=== PATIENT | male | born 1945 | race African-American/Black ===

== ENCOUNTER → 2016-09-04 | Outpatient (CLI) | payer MEDICARE ==
--- NOTE | 2016-09-04 15:27 | CARD ---
APPROVED REPORT EXAM: Two-dimensional and M-mode echocardiogram with Doppler and color Doppler. Other Information Quality : Good INDICATION Peripheral Edema 2D DIMENSIONS RVDd3.3 (2.9-3.5cm)Left Atrium(2D)3.3 (1.6-4.0cm) IVSd1.4 (0.7-1.1cm)Aortic Root(2D)3.5 (2.0-3.7cm) LVDd4.0 (3.9-5.9cm)LVOT Diameter2.5 (1.8-2.4cm) PWd1.4 (0.7-1.1cm)LVDs2.6 (2.5-4.0cm) FS (%) 33.6 %SV43.7 ml LVEF(%)60.0 (>50%) Aortic Valve AoV Peak Mg.147.5cm/sAoV VTI31.9cm AO Peak GR.8.7mmHgLVOT Peak Mg.99.7cm/s AO Mean GR.5mmHgAVA (VMAX)3.25cm2 VAMSI (VTI)3.00cm2 Mitral Valve MV E Ibgljnsq91.7cm/sMV DECEL BYGA889eo MV A Klbsenyw89.0cm/sE/A Ratio1.0 Tricuspid Valve TR P. Rsdfncvk063ot/sRAP HVEDLCNA0xiZp TR Peak Gr.99xiVcKUBU94mmJy Pulmonary Vein S1 Kcgopqkt34.5cm/sD2 Nnvhuebz81.7cm/s PVa lisbxqsn627ezsp LEFT VENTRICLE The left ventricle is normal size. There is mild concentric left ventricular hypertrophy. The left ve ntricular systolic function is normal. The Ejection Fraction is 55-60%. There is normal LV segmental wall motion. RIGHT VENTRICLE The right ventricle is normal size. The right ventricular systolic function is normal. ATRIA The left atrium size is normal. The right atrium size is normal. The interatrial septum is intact wit h no evidence for an atrial septal defect or patent foramen ovale as noted on 2-D or Doppler imaging. AORTIC VALVE The aortic valve is calcified but opens well. Doppler and Color Flow revealed no significant aortic r egurgitation. There is no significant aortic valvular stenosis. MITRAL VALVE The mitral valve is normal in structure and function. There is no evidence of mitral valve prolapse. There is no mitral valve stenosis. Doppler and Color-flow revealed trace mitral regurgitation. TRICUSPID VALVE The tricuspid valve is normal in structure and function. Doppler and Color Flow revealed trace tricus pid regurgitation. There is mild pulmonary hypertension. The PA pressure was estimated at 31 mmHg. Th ere is no tricuspid valve stenosis. PULMONIC VALVE The pulmonary valve is normal in structure and function. Doppler and Color Flow revealed mild pulmoni c valvular regurgitation. There is no pulmonic valvular stenosis. GREAT VESSELS The aortic root is normal in size. The ascending aorta is normal in size. The IVC is normal in size a nd collapses >50% with inspiration. PERICARDIAL EFFUSION There is no evidence of significant pericardial effusion. Critical Notification Critical Value: No <Conclusion> The left ventricular systolic function is normal. The Ejection Fraction is 55-60%. There is normal LV segmental wall motion. Trace mitral regurgitation. Trace tricuspid regurgitation. There is no evidence of significant pericardial effusion.
== END | disposition home or self-care (01) ==
LOC: ECHO 10:14
PROVIDERS: ATTEND Internal Medicine
DX: M79.89 Other specified soft tissue disorders (principal); R60.9 Edema, unspecified; I07.1 Rheumatic tricuspid insufficiency; I27.2 Other secondary pulmonary hypertension; I34.0 Nonrheumatic mitral (valve) insufficiency
CPT/HCPCS: 93306

== ENCOUNTER → 2017-03-14 | Outpatient (CLI) | payer BC ==
[~2017-03-14] MED LIST: HEPARIN PF 500 UNIT/5 ML DISP.SYRIN. IV ONE; IOHEXOL 240 MG/ML 50ML VIAL. PO ONE; IOHEXOL 300 MG/ML 75 ML VIAL IV ONE
--- NOTE | 2017-03-14 13:03 | RAD ---
CT of the chest, abdomen and pelvis with contrast, 03/14/2017: History: Colon cancer follow-up, abnormal liver function tests Multidetector CT imaging was performed following oral and IV administration of contrast. Comparison is made to a study from 05/21/2016. Mildly enlarged mediastinal lymph nodes are unchanged. There are calcifications within these nodes. Moderate coronary artery calcifications are present. The thoracic aorta is of normal caliber. There are scattered linear opacities in the lungs, particularly in the apical regions which are unchanged and are compatible with scars. There are nodular, predominantly tree-in-bud type opacities in the upper lobes which are also unchanged and are likely postinflammatory. No new pulmonary infiltrate or mass is seen. There is no evidence of pleural fluid. Several scattered low density lesions are again noted in the liver. The largest of these demonstrates low internal CT numbers compatible with cysts. No new or enlarging liver lesion is seen. The gallbladder is collapsed. No pancreatic abnormality is detected. The spleen is of normal size. No renal or adrenal abnormality is detected. There is mild aortoiliac calcific plaquing. No abdominal or pelvic adenopathy is detected. The prostate gland is at the upper limits of normal in size. The bowel loops are not dilated. No free air or significant free fluid is identified in the abdomen or pelvis. IMPRESSION: 1. Stable bilateral linear and nodular pulmonary opacities, probably on a postinflammatory basis. 2. Mildly enlarged, partially calcified mediastinal lymph nodes are unchanged, also likely on a postinflammatory basis. 3. Stable hepatic cysts. 4. No specific evidence of metastatic disease in the chest, abdomen or pelvis. PQRS Compliance Statement: One or more of the following individualized dose reduction techniques were utilized for this examination: 1. Automated exposure control 2. Adjustment of the mA and/or kV according to patient size 3. Use of iterative reconstruction technique
== END | disposition home or self-care (01) ==
LOC: CT 08:59
PROVIDERS: ATTEND Internal Medicine Hematology & Oncology
DX: C18.2 Malignant neoplasm of ascending colon (principal); C34.11 Malignant neoplasm of upper lobe, right bronchus or lung; I25.10 Atherosclerotic heart disease of native coronary artery without angina pectoris; K76.89 Other specified diseases of liver; I10 Essential (primary) hypertension
CPT/HCPCS: 71260; 74177; Q9966; Q9967

== ENCOUNTER → 2017-09-30 | Outpatient (CLI) | payer BC ==
[~2017-09-30] MED LIST changes: +CONTRAST GIVEN MC; -HEPARIN PF 500 UNIT/5 ML DISP.SYRIN. IV ONE; -IOHEXOL 240 MG/ML 50ML VIAL. PO ONE; -IOHEXOL 300 MG/ML 75 ML VIAL IV ONE
[2017-09-30] MEDS: IOHEXOL 240 MG/ML 50ML VIAL. PO (08:45)
[2017-09-30] MEDS: IOHEXOL 300 MG/ML 100ML VIAL. IV (10:04)
== END | disposition home or self-care (01) ==
LOC: CT 07:52
DX: C18.2 Malignant neoplasm of ascending colon (principal); I25.10 Atherosclerotic heart disease of native coronary artery without angina pectoris; N40.0 Benign prostatic hyperplasia without lower urinary tract symptoms; K40.90 Unilateral inguinal hernia, without obstruction or gangrene, not specified as recurrent; R91.8 Other nonspecific abnormal finding of lung field
CPT/HCPCS: 71260; 74177; Q9966; Q9967

== ENCOUNTER → 2018-04-16 | Outpatient (CLI) | payer BC ==
[~2018-04-16] MED LIST changes: -CONTRAST GIVEN MC; +IOHEXOL 240 MG/ML 50ML VIAL. PO ONE; +IOHEXOL 300 MG/ML 100ML VIAL. IV ONE
--- NOTE | 2018-04-16 13:52 | RAD ---
Examination: CT of the abdomen pelvis with IV contrast HISTORY: History of follow-up colon cancer COMPARISON: 09/30/2017 TECHNIQUE: Axial CT images of the abdomen pelvis were performed with IV contrast. Coronal and sagittal reformats are performed. Oral contrast was used. Exposure: One or more of the following individualized dose reduction techniques were utilized for this examination: 1. Automated exposure control 2. Adjustment of the mA and/or kV according to patient size 3. Use of iterative reconstruction technique FINDINGS: The visualized thyroid gland grossly appears unremarkable. Central airways are patent. Few prominent calcified mediastinal lymph nodes are again identified similar to prior exam. The heart size grossly appears unremarkable. Coronary artery calcifications. Reticular nodular markings identified in the bilateral upper lobes with biapical scarring changes unchanged. 6 mm nodule identified in the right upper lobe of the lung is unchanged. Multiple cystic structures identified in the liver similar to prior exam likely cysts. The visualized spleen, adrenals grossly appears unremarkable. The gallbladder is mildly distended. The stomach is mildly distended. The visualized pancreas grossly appears unremarkable. The small bowel is nondilated. Bilateral kidneys enhance symmetrically. Feces and gas noted in the colon. Urinary bladder is mildly distended. Mildly enlarged prostate gland. Moderate degenerative changes thoracolumbar spine. IMPRESSION: 1. Reticulonodular interstitial markings identified in the bilateral upper lobes similar to prior exam. Unchanged 6 mm nodule identified in the right upper lobe of the lung. 2. Unchanged mediastinal lymphadenopathy. 3. Liver cysts. 4. No obvious evidence of new metastatic disease. Electronically signed by: Mikael Osborne MD (04/16/2018 1:49 PM) [facility]
== END | disposition home or self-care (01) ==
LOC: CT 13:49
PROVIDERS: ATTEND Internal Medicine Hematology & Oncology
DX: C18.2 Malignant neoplasm of ascending colon (principal); N40.0 Benign prostatic hyperplasia without lower urinary tract symptoms; I25.10 Atherosclerotic heart disease of native coronary artery without angina pectoris; I10 Essential (primary) hypertension; R59.1 Generalized enlarged lymph nodes
CPT/HCPCS: 71260; 74177; Q9966; Q9967

== ENCOUNTER → 2020-03-11 | Day surgery (SDC) | payer BC ==
[~2020-03-11] MED LIST changes: +AMLO5TAB10 PO; +CHLO25TA10 PO; -IOHEXOL 240 MG/ML 50ML VIAL. PO ONE; -IOHEXOL 300 MG/ML 100ML VIAL. IV ONE; +IV RINGERS,LACTATED 1000ML 1,000 ML IV ONE; +LOSA100T14 PO; +PROPOFOL 10 MG/ML (20ML) VIAL. IV ONE
[2020-03-11 10:11] VITALS: BP 137/74
--- NOTE | 2020-03-16 22:40 | HP ---
ADMIT DATE: 03/16/2020 PREOPERATIVE HISTORY AND PHYSICAL REASON FOR COLONOSCOPY: History of ascending colon cancer. HISTORY OF PRESENT ILLNESS: A 74-year-old -Citizen Of [place] female with past medical history significant for anemia and colon cancer, is seen for interval colon exam. The patient underwent resection, has done well since in 2016, interval exam is recommended. She denies any change in bowel habits at this time bleeding, diarrhea, weight loss or additional constitutional symptoms. PAST MEDICAL HISTORY: Significant for colon cancer, osteoarthritis. MEDICATIONS: Include amlodipine for blood pressure, chlorthalidone, vitamin D3, losartan, omeprazole, multivitamin. ALLERGIES: None. FAMILY AND SOCIAL HISTORY: She is retired. She does not drink or smoke at this time. FAMILY HISTORY: Noncontributory. REVIEW OF SYSTEMS: Per records. PHYSICAL EXAMINATION: GENERAL: Reveals a well-nourished, well-developed -Citizen [place] female who is alert, cooperative, in no acute distress. LUNGS: Clear. CARDIOVASCULAR: Reveals an S1, S2 without S3, S4 or appreciable murmur. ABDOMEN: Reveals a soft abdomen, normoactive bowel sounds, without appreciable hepatosplenomegaly. EXTREMITIES: Reveals no cyanosis, clubbing or edema. IMPRESSION: History of colon cancer. Surveillance exam is recommended at this time. Risks and benefits of procedure including risk of hemorrhage and perforation with operation have been discussed. The patient is willing to proceed. I would like to thank Dr. Franklin for allowing us to consult and participate in the patient's care. CAROLYNE LEON MD DR: CAIO/rita JOB#: [id number] / [id number]
== END | disposition home or self-care (01) ==
LOC: SURG 07:10
PROVIDERS: ATTEND Internal Medicine Gastroenterology
DX: Z12.11 Encounter for screening for malignant neoplasm of colon (principal); K64.0 First degree hemorrhoids; I10 Essential (primary) hypertension; Z20.828 Contact with and (suspected) exposure to other viral communicable diseases; Z85.038 Personal history of other malignant neoplasm of large intestine; Z79.899 Other long term (current) drug therapy
CPT/HCPCS: 45378; 87426; J2704; U0003

== ENCOUNTER → 2020-10-04 | Outpatient (CLI) | payer BC ==
[2020-03-11 10:11] VITALS: BP 137/74
[~2020-10-04] MED LIST changes: +AMLO-186 PO; -AMLO5TAB10 PO; -IV RINGERS,LACTATED 1000ML 1,000 ML IV ONE; -PROPOFOL 10 MG/ML (20ML) VIAL. IV ONE; +REGADENOSON 0.4 MG/5 ML DISP.SYRIN. IV ONE
--- NOTE | 2020-10-04 14:21 | RAD ---
MR#: [id number] Date of Study: 10/04/2020 Ordering Physician: BERKLEY ROBLEDO, Referring Physician: DEVANTE STAFFORD Tech: SANYA Adams, ARRT (R) (N) APPROVED REPORT Test Type: Pharmacological Stress Nurse/Tech: Rafaela Winter RN Test Indications: Chest pain Cardiac History: HTN Medications: See Electronic Medical Record Medical History: See Electronic Medical Record Resting ECG: SR Resting Heart Rate: 73 bpm Resting Blood Pressure: 145/71mmHg Pretest Chest Pain: None Nurse/Tech Notes Lungs CTA, S1S2 Consent: The procedure was explained to the patient in lay terms. Informed consent was witnessed. Toribio eout was entered into [employer]. History and Stress Test performed by [facility]. Details Pharmacologic stress testing was performed using 0.4mg per 5ml of regadenoson given intravenously ove r 7-10 seconds. Stress Symptoms No chest pain or symptoms. POST EXERCISE Reason for Termination: Infusion complete Max HR: 93 bpm Max Blood Pressure: 145/65mmHg Blood Pressure response to exercise: Normal blood pressure response during stress. Heart Rate response to exercise: Normal response Chest Pain: No. Arrhythmia: No. ST Change: No. INTERPRETATION Stress EKG Conclusion: Baseline EKG showed sinus rhythm. No ischemic changes at peak stress. No arr hythmias. Imaging Protocol IMAGE PROTOCOL: Rest Tc-99m/stress Tc-99m 1 day Rest: Stress: Viability: Radiopharm.Tc99m QtxwcbdzfVi84l Sestamibi Vgiw61jEi 33mCi Img Date 10/04/2020 10/04/2020 Inj-Img Aqdd81ndv. 60min. Rest Admin Site:IV - Right AntecubitalAdministrator:HECTOR Molina Stress Admin Site: IV - Right AntecubitalAdministrator: Jim Patricia, RT (R)(N) STRESS DATA End Diast. Vol.85.0mlLVEDV index BSA37.0ml End Syst. Vol.22.0mlLVESV index BSA9.0ml Myocardial Cnea816.0gEject. Tfqvrxpk18.0% Stress Scores Regional WT0.00Summed WT8.00 Regional WM0.00Summed WM2.00 Study quality was good. Left Ventricular size was Normal at Rest and Stress. Lung uptake was . Left Ventricular ejection fraction is 73%. The rest and stress images show normal perfusion, normal contraction and thickening. LV Perf. Quant 17 Seg. SSS0.00 17 Seg. SRS0.00 17 Seg. SDS0.00 Stress Defect Extent (% LAD)0.00Rest Defect Extent (% LAD)0.00Rev. Defect Extent (% LAD)0.00 Stress Defect Extent (% LCX) 0.00Rest Defect Extent (% LCX)0.00Rev. Defect Extent (% LCX)0.00 Stress Defect Extent (% RCA)0.00Rest Defect Extent (% RCA)0.00Rev. Defect Extent (% RCA)0.00 Stress Defect Extent (% FUAD)0.00Rest Defect Extent (% FUAD)0.00Rev. Defect Extent (% FUAD)0.00 Conclusion 1. Regadenoson cardioisotope stress test did not show any evidence of ischemia or infarct. 2. Normal left ventricular systolic function with ejection fraction calculated at 73%. 3. Low risk for cardiac events. Signed by : Berkley Robledo, Electronically Approved : 10/04/2020 14:20:27
--- NOTE | 2020-10-05 08:43 | RAD ---
MR#: [id number] Date of Study: 10/04/2020 Ordering Physician: BERKLEY ROBLEDO, Referring Physician: BERKLEY ROBLEDO, Tech: Jose Graham MBA, RDMS, RVT, RDCS, RTR APPROVED REPORT Patient Location: OUT-PATIENT Indications Uncontrolled HTN Renal Artery Doppler Right Renal Artery Left Renal Arter y Proximal 119.0/17.0 cm/secProximal 73.0/16.0 cm/sec Mid 84.0/13.0 cm/secMid 63.0/16.0 cm/sec Distal 71.0/17.0 cm/secDistal 62.0/10.0 cm/sec Renal/Aorta Ratio 0.78Renal/Aorta Ratio 0.45 Prox. Resistive Index 0.86Prox. Resistive Index 0.78 Mid Resistive Index 0.84Mid Resistive Index 0.75 Distal Resistive Index 0.76Distal Resistive Index 0.84 Rt. Segmental A. 40.0/9.0 cm/secLt. Segmental A. Renal Measurements RightLeft Kidney Pbqqpu31.9 cm cmKidney Qpjbbc85.0 cm cm Right Additional FindingsLeft Additional Findings Aortic Doppler VelocityWaveform Mid. Aorta 160.0 cm/sec Findings Technically limited study. Grossly the proximal, mid and distal renal arteries have normal velocitie s as noted. Normal resistive indices. Normal renal to aortic ratios. The visualized abdominal aort a has mild diffuse calcification. Grossly the bilateral kidneys do not demonstrate any obvious patho logy. Limited imaging of the gallbladder reveals cholelithiasis. Critical Notification Critical Value: No <Conclusion> 1. No evidence of renal artery stenosis 2. Incidental note is made of cholelithiasis 3. Technically difficult study. Signed by : Ronak Holland, Electronically Approved : 10/05/2020 08:42:51
--- NOTE | 2020-10-05 16:21 | CARD ---
MR#: [id number] Date of Study: 10/05/2020 Ordering Physician: JIGNA TAYLOR, Referring Physician: JIGNA TAYLOR, Tech: Izzy Colindres, [facility] APPROVED REPORT EXAM: Two-dimensional and M-mode echocardiogram with Doppler and color Doppler. Other Information Quality : AverageHR: 84bpm INDICATION Chest Pain RISK FACTORS Hypertension 2D DIMENSIONS RVDd3.5 (2.9-3.5cm)Left Atrium(2D)3.1 (1.6-4.0cm) IVSd1.1 (0.7-1.1cm)Aortic Root(2D)3.7 (2.0-3.7cm) LVDd4.5 (3.9-5.9cm)LVOT Diameter2.1 (1.8-2.4cm) PWd0.9 (0.7-1.1cm)LVDs2.8 (2.5-4.0cm) FS (%) 39.2 %SV66.0 ml LVEF(%)69.8 (>50%) Aortic Valve AoV Peak Mg.166.4cm/sAoV VTI35.1cm AO Peak GR.11.1mmHgLVOT Peak Mg.103.6cm/s LVOT VTI 24.82cmAO Mean GR.6mmHg VAMSI (VMAX)1.17bz8GVX (VTI)2.42cm2 Mitral Valve MV E Jeduecox84.8cm/sMV DECEL NTOE431wf MV A Zcgmbzjw05.5cm/sMV HXR53ga E/A Ratio1.0MVA (PHT)3.05cm2 TDI E/Lateral E'10.9E/Medial E'10.3 Pulmonary Valve PV Peak Pbknbdeu02.9cm/sPV Peak Grad.3mmHg Tricuspid Valve TR P. Vcrgstdh938jv/sRAP KTEQDBMH1aaXw TR Peak Gr.80zpUvGVSH59feYt Pulmonary Vein S1 Irhefztz43.2cm/sD2 Duoomyse98.2cm/s PVa kgpeqxym516ttga LEFT VENTRICLE The left ventricle is normal size. There is borderline concentric left ventricular hypertrophy. The l eft ventricular systolic function is normal. The Ejection Fraction is 55-60%. There is normal LV segm ental wall motion. Transmitral Doppler flow pattern is Grade II-pseudonormal filling dynamics. RIGHT VENTRICLE The right ventricle is borderline dilated. There is normal right ventricular wall thickness. The righ t ventricular systolic function is normal. ATRIA The left atrium size is normal. The right atrium is borderline dilated. The interatrial septum is int act with no evidence for an atrial septal defect or patent foramen ovale as noted on 2-D or Doppler i maging. AORTIC VALVE The aortic valve is thickened but opens well. Doppler and Color Flow revealed trace aortic regurgitat ion. There is no significant aortic valvular stenosis. Calculated aortic valve area is 2.19 cm2 with maximum pressure gradient of 16 mmHg and mean pressure gradient of 7 mmHg. MITRAL VALVE The mitral valve is normal in structure and function. There is no evidence of mitral valve prolapse. There is no mitral valve stenosis. Doppler and Color-flow revealed trace mitral regurgitation. TRICUSPID VALVE The tricuspid valve is normal in structure and function. Doppler and Color Flow revealed trace tricus pid regurgitation with an estimated PAP of 37 mmHg. There is no tricuspid valve stenosis. PULMONIC VALVE The pulmonic valve is not well visualized. Doppler and Color Flow revealed trace to mild pulmonic caleb vular regurgitation. GREAT VESSELS The aortic root is normal in size. The ascending aorta is normal in size. The IVC is normal in size a nd collapses >50% with inspiration. PERICARDIAL EFFUSION There is no evidence of significant pericardial effusion. Critical Notification Critical Value: No <Conclusion> The left ventricular systolic function is normal. The Ejection Fraction is 55-60%. There is normal LV segmental wall motion. Transmitral Doppler flow pattern is Grade II-pseudonormal filling dynamics. Trace mitral regurgitation. Trace tricuspid regurgitation with an estimated PAP of 37 mmHg. There is no evidence of significant pericardial effusion. Signed by : Ang Almanzar, Electronically Approved : 10/05/2020 16:21:00
== END ==
LOC: NM 09:32
PROVIDERS: ATTEND Internal Medicine Cardiovascular Disease
DX: I37.1 Nonrheumatic pulmonary valve insufficiency (principal); I10 Essential (primary) hypertension
CPT/HCPCS: 78452; 93017; 93975; A9500; J2785; 93306

== ENCOUNTER → 2020-10-28 | Outpatient (CLI) | payer BC ==
[2020-03-11 10:11] VITALS: BP 137/74
[~2020-10-28] MED LIST changes: -REGADENOSON 0.4 MG/5 ML DISP.SYRIN. IV ONE
== END ==
LOC: LAB 08:47
PROVIDERS: ATTEND Internal Medicine Cardiovascular Disease
DX: I10 Essential (primary) hypertension (principal)
CPT/HCPCS: 82088; 84244